=== PATIENT | male | born 1945 | race Caucasian/White ===

== ENCOUNTER 2019-08-27 08:06 | Outpatient (CLI) | payer MEDICARE, SELFPAY ==
[2019-08-27 08:36] LABS: Add Urine Microscopic? YES; Appearance Urine Clear (Clear); Bilirubin Urine Negative (Negative); Blood Urine Negative (Negative); Color Urine Yellow (Yellow); Glucose Urine UA Negative (Negative); Ketones Urine Negative (Negative); Leukocyte Esterase Ur Negative LEU/UL (NEGATIVE); Mucus Urine Rare /lpf; Nitrate Urine Negative (Negative); Protein Urine 1+ mg/dL (Negative); RBC Urine 0-2 /hpf (0-2); Specific Grav Ur 1.021 (1.001-1.035); Squamous Epithelial Cell Urine Rare /hpf (Few); Urobilinogen Urine Negative mg/dL (<2.0); WBC Urine 0-3 /hpf (0-3)
[2019-08-27 08:48] LABS: Potassium 4.6 mmol/L (3.4-5.0)
[2019-08-27 08:50] LABS: Hemoglobin A1C 7.2 % (<5.7)
[2019-08-27 08:52] LABS: Alanine Aminotransferase 17 U/L (4-50); Alkaline Phosphatase 57 U/L (38-126); Aspartate Amino Transferase 21 U/L (17-59); Bilirubin,Total 0.5 mg/dL (0.2-1.3); Blood Urea Nitrogen 17 mg/dL (9-20); Calcium 8.9 mg/dL (8.4-10.2); Carbon Dioxide 30 mmol/L (22-30); Chloride 102 mmol/L (98-107); Cholesterol 115 mg/dL (0-200); Estimated Glomerular Filt Rate > 60; Glucose 131 mg/dL (75-110); HDL Direct 40 mg/dL; Sodium 139 mmol/L (137-145); Triglycerides 62 mg/dL (<150)
[2019-08-27 09:00] LABS: LDL Cholesterol Direct 61 mg/dL
[2019-08-27 09:19] LABS: Prostate Specific Antigen 2.4 ng/mL (< OR = 4.0)
== END 2019-08-27 08:07 | disposition home or self-care (01) ==
PROVIDERS: PCP Family Medicine; Visit Provider Family Medicine
DX: I10 Essential (primary) hypertension (principal); E11.9 Type 2 diabetes mellitus without complications; E78.2 Mixed hyperlipidemia; R35.1 Nocturia
CPT/HCPCS: 36415; 80048; 80061; 80076; 81001; 83036; 84153; 84443

== ENCOUNTER 2020-04-21 07:49 | Outpatient (CLI) | payer MEDICARE, SELFPAY ==
[2020-04-21 08:19] LABS: Anion Gap 8 mmol/L (8-16); Blood Urea Nitrogen 17 mg/dL (9-20); Calcium 9.1 mg/dL (8.4-10.2); Carbon Dioxide 30 mmol/L (22-30); Chloride 98 mmol/L (98-107); Estimated Glomerular Filt Rate > 60; Glucose 141 mg/dL (75-110); Potassium 4.2 mmol/L (3.4-5.0); Sodium 136 mmol/L (137-145)
== END 2020-04-21 07:50 | disposition home or self-care (01) ==
PROVIDERS: PCP Family Medicine; Visit Provider Family Medicine
DX: E11.9 Type 2 diabetes mellitus without complications (principal)
CPT/HCPCS: 36415; 80048; 83036

== ENCOUNTER 2020-07-29 09:00 | Outpatient (CLI) | payer MEDICARE, SELFPAY | END 2020-07-29 09:01 | disposition home or self-care (01) | LOC: ANHCOVIDVC 09:00 | PROVIDERS: PCP Family Medicine | DX: Z23 Encounter for immunization (principal) | CPT/HCPCS: 0001A; 91300 ==

== ENCOUNTER 2020-08-19 08:51 | Outpatient (CLI) | payer MEDICARE, SELFPAY | END 2020-08-19 08:52 | disposition home or self-care (01) | LOC: ANHCOVIDVC 08:51 | PROVIDERS: PCP Family Medicine | DX: Z23 Encounter for immunization (principal) | CPT/HCPCS: 0002A; 91300 ==

== ENCOUNTER 2020-08-31 08:16 | Outpatient (CLI) | payer MEDICARE, SELFPAY ==
[2020-08-31 09:04] LABS: Add Urine Microscopic? YES; Appearance Urine Clear (Clear); Bilirubin Urine Negative (Negative); Blood Urine Negative (Negative); Color Urine Yellow (Yellow); Glucose Urine UA 1+ mg/dL (Negative); Ketones Urine Negative (Negative); Leukocyte Esterase Ur 1+ LEU/UL (NEGATIVE); Mucus Urine Rare /lpf; Nitrate Urine Negative (Negative); Protein Urine Negative (Negative); RBC Urine 0-2 /hpf (0-2); Specific Grav Ur 1.023 (1.001-1.035); Squamous Epithelial Cell Urine Rare /hpf (Few); Urobilinogen Urine Negative mg/dL (<2.0)
[2020-08-31 09:05] LABS: Basophils Absolute Auto 0.1 K/mm3 (0.0-0.1); Basophils Percent Auto 0.6 % (0.2-1.2); Eosinophils Absolute Auto 0.2 K/mm3 (0-0.3); Eosinophils Percent Auto 1.3 % (0-4.4); Hematocrit 40.9 % (42.0-52.0); Hemoglobin 13.3 g/dL (14.0-18.0); Immature Granulocyte Absolute 0.11 K/mm3 (0.00-0.031); Lymphocytes Absolute Auto 2.82 K/mm3 (0.9-3.2); Lymphocytes Percent Auto 25.2 % (18.3-44.2); Mean Corpuscular HGB Conc 32.5 g/dl (32-36); Mean Corpuscular Hemoglobin 29.8 pg (26-34); Mean Corpuscular Volume 91.5 fl (80-100); Mean Platelet Volume 10.7 fl (7.4-10.4); Monocytes Absolute Auto 1.1 K/mm3 (0.1-0.6); Monocytes Percent Auto 10.2 % (2.6-8.5); Neutrophils Absolute Auto 6.9 K/mm3 (1.3-6.7); Neutrophils Percent Auto 61.7 % (45.5-73.1); Platelet Count Result 264 k/mm3 (150-375); Red Blood Count 4.47 M/mm3 (4.6-6.20); Red Cell Distribution Width 12.5 % (11.5-14.5); White Blood Count 11.2 K/mm3 (4.5-10.0)
[2020-08-31 09:12] LABS: Alanine Aminotransferase 15 U/L (4-50); Alkaline Phosphatase 59 U/L (38-126); Anion Gap 6 mmol/L (8-16); Aspartate Amino Transferase 20 U/L (17-59); Bilirubin,Total 0.5 mg/dL (0.2-1.3); Blood Urea Nitrogen 17 mg/dL (9-20); Calcium 9.2 mg/dL (8.4-10.2); Carbon Dioxide 32 mmol/L (22-30); Chloride 99 mmol/L (98-107); Cholesterol 118 mg/dL (0-200); Estimated Glomerular Filt Rate > 60; Glucose 154 mg/dL (75-110); HDL Direct 46 mg/dL; Potassium 4.5 mmol/L (3.4-5.0); Sodium 137 mmol/L (137-145); Triglycerides 62 mg/dL (<150)
[2020-08-31 09:23] LABS: LDL Cholesterol Direct 68 mg/dL
[2020-08-31 09:42] LABS: Prostate Specific Antigen 2.5 ng/mL (< OR = 4.0)
[2020-08-31 10:37] LABS: Creatinine Urine 145.5 mg/dL
[2020-08-31 10:40] LABS: MALB Creatinine Ratio 4.3 mg/g (0-30); Microalbumin Urine Random 6.3 mg/L (0-16.7)
[2020-08-31 10:48] LABS: Hemoglobin A1C 7.6 % (<5.7)
== END 2020-08-31 08:17 | disposition home or self-care (01) ==
PROVIDERS: PCP Family Medicine; Visit Provider Family Medicine
DX: R35.1 Nocturia (principal); E11.9 Type 2 diabetes mellitus without complications; E78.2 Mixed hyperlipidemia; I10 Essential (primary) hypertension; J44.9 Chronic obstructive pulmonary disease, unspecified
CPT/HCPCS: 36415; 80048; 80061; 80076; 81001; 82043; 83036; 84153; 84443; 85025

== ENCOUNTER 2021-01-21 08:14 | Outpatient (CLI) | payer MEDICARE, SELFPAY ==
[2021-01-21 09:01] LABS: Basophils Absolute Auto 0.1 K/mm3 (0.0-0.1); Basophils Percent Auto 0.8 % (0.2-1.2); Eosinophils Absolute Auto 0.1 K/mm3 (0-0.3); Eosinophils Percent Auto 1.2 % (0-4.4); Hematocrit 42.5 % (42.0-52.0); Hemoglobin 14.1 g/dL (14.0-18.0); Immature Granulocyte Absolute 0.04 K/mm3 (0.00-0.031); Immature Granulocyte Percent A 0.3 % (0-0.5); Lymphocytes Absolute Auto 2.71 K/mm3 (0.9-3.2); Lymphocytes Percent Auto 22.8 % (18.3-44.2); Mean Corpuscular HGB Conc 33.2 g/dl (32-36); Mean Corpuscular Hemoglobin 30.7 pg (26-34); Mean Corpuscular Volume 92.4 fl (80-100); Monocytes Absolute Auto 1.2 K/mm3 (0.1-0.6); Monocytes Percent Auto 10.1 % (2.6-8.5); Neutrophils Absolute Auto 7.7 K/mm3 (1.3-6.7); Neutrophils Percent Auto 64.8 % (45.5-73.1); Platelet Count Result 282 k/mm3 (150-375); Red Cell Distribution Width 12.6 % (11.5-14.5); White Blood Count 11.9 K/mm3 (4.5-10.0)
[2021-01-21 09:32] LABS: Hemoglobin A1C 7.1 % (<5.7)
[2021-01-21 10:09] LABS: Iron 135 ug/dL (49-181)
[2021-01-21 10:21] LABS: Folic Acid 18.1 ng/mL (2.76->20)
== END 2021-01-21 08:15 | disposition home or self-care (01) ==
LOC: ANHLAB 08:19
PROVIDERS: PCP Family Medicine; Visit Provider Family Medicine
DX: E11.65 Type 2 diabetes mellitus with hyperglycemia (principal); D64.9 Anemia, unspecified
CPT/HCPCS: 36415; 82607; 82746; 83036; 83540; 85025

== ENCOUNTER 2021-09-01 08:23 | Outpatient (CLI) | payer MEDICARE, SELFPAY ==
[2021-09-01 08:51] LABS: Hematocrit 39.5 % (42.0-52.0); Hemoglobin 13.2 g/dL (14.0-18.0); Mean Corpuscular HGB Conc 33.4 g/dl (32-36); Mean Corpuscular Hemoglobin 31.1 pg (26-34); Mean Corpuscular Volume 93.2 fl (80-100); Platelet Count Result 273 k/mm3 (150-375); Red Blood Count 4.24 M/mm3 (4.6-6.20); Red Cell Distribution Width 12.9 % (11.5-14.5)
[2021-09-01 08:52] LABS: Appearance Urine Clear (Clear); Bilirubin Urine Negative (Negative); Blood Urine Negative (Negative); Color Urine Yellow (Yellow); Glucose Urine UA Trace mg/dL (Negative); Ketones Urine Negative (Negative); Leukocyte Esterase Ur Trace LEU/UL (NEGATIVE); Nitrate Urine Negative (Negative); Protein Urine Negative (Negative); Specific Grav Ur 1.025 (1.001-1.035)
[2021-09-01 08:59] LABS: Bacteria Urine Trace /hpf; Mucus Urine Rare /lpf; RBC Urine 0-2 /hpf (0-2); WBC Urine 0-3 /hpf (0-3)
[2021-09-01 09:01] LABS: Add Urine Microscopic? YES
[2021-09-01 09:02] LABS: Hemoglobin A1C 7.1 % (<5.7)
[2021-09-01 09:32] LABS: Microalbumin Urine Random 7.5 mg/L (0-16.7)
[2021-09-01 09:34] LABS: Creatinine Urine 128.2 mg/dL; MALB Creatinine Ratio 5.9 mg/g (0-30)
[2021-09-01 10:13] LABS: Alanine Aminotransferase 16 U/L (4-50); Alkaline Phosphatase 63 U/L (38-126); Anion Gap 7 mmol/L (8-16); Aspartate Amino Transferase 23 U/L (17-59); Bilirubin,Total 0.7 mg/dL (0.2-1.3); Blood Urea Nitrogen 16 mg/dL (9-20); Calcium 8.7 mg/dL (8.4-10.2); Carbon Dioxide 28 mmol/L (22-30); Chloride 100 mmol/L (98-107); Cholesterol 125 mg/dL (0-200); Estimated Glomerular Filt Rate > 60; Glucose 164 mg/dL (65-110); HDL Direct 46 mg/dL; Potassium 4.5 mmol/L (3.4-5.0); Sodium 135 mmol/L (137-145); Triglycerides 62 mg/dL (<150)
[2021-09-01 10:24] LABS: LDL Cholesterol Direct 60 mg/dL
[2021-09-01 10:43] LABS: Prostate Specific Antigen 2.4 ng/mL (< OR = 4.0)
[2021-09-01 11:08] LABS: Vitamin B12 > 1000.0 pg/mL (239-931)
== END 2021-09-01 08:24 | disposition home or self-care (01) ==
LOC: ANHLAB 08:27
PROVIDERS: PCP Family Medicine; Visit Provider Family Medicine
DX: E78.2 Mixed hyperlipidemia (principal); D51.9 Vitamin B12 deficiency anemia, unspecified; E11.65 Type 2 diabetes mellitus with hyperglycemia; R35.1 Nocturia
CPT/HCPCS: 36415; 80048; 80061; 80076; 81001; 82043; 82607; 83036; 84153; 84443; 85027

== ENCOUNTER 2022-03-08 08:04 | Outpatient (CLI) | payer MEDICARE, SELFPAY ==
[2022-03-08 08:55] LABS: Alanine Aminotransferase 19 U/L (6-50); Albumin Level 4.2 g/dL (3.5-5.1); Alkaline Phosphatase 57 U/L (38-126); Anion Gap 13 mmol/L (8-16); Aspartate Amino Transferase 23 U/L (17-59); Bilirubin,Total 0.8 mg/dL (0.2-1.3); Blood Urea Nitrogen 14 mg/dL (9-20); Calcium 8.9 mg/dL (8.4-10.2); Carbon Dioxide 25 mmol/L (22-30); Chloride 97 mmol/L (98-107); Cholesterol 116 mg/dL (0-200); Estimated Glomerular Filt Rate > 60; Glucose 150 mg/dL (65-110); HDL Direct 44 mg/dL; Potassium 4.4 mmol/L (3.4-5.0); Sodium 135 mmol/L (137-145); Triglycerides 75 mg/dL (<150)
[2022-03-08 09:06] LABS: Hemoglobin A1C 7.9 % (<5.7); LDL Cholesterol Direct 55 mg/dL
== END 2022-03-08 08:05 | disposition home or self-care (01) ==
PROVIDERS: PCP Family Medicine; Visit Provider Family Medicine
DX: E78.2 Mixed hyperlipidemia (principal); E11.65 Type 2 diabetes mellitus with hyperglycemia
CPT/HCPCS: 36415; 80048; 80061; 80076; 83036

== ENCOUNTER 2022-09-14 07:54 | Outpatient (CLI) | payer MEDICARE, SELFPAY ==
[2022-09-14 08:34] LABS: Basophils Absolute Auto 0.1 K/mm3 (0.0-0.1); Basophils Percent Auto 0.5 % (0.2-1.2); Eosinophils Absolute Auto 0.1 K/mm3 (0-0.3); Eosinophils Percent Auto 0.8 % (0-4.4); Hematocrit 43.8 % (42.0-52.0); Hemoglobin 14.2 g/dL (14.0-18.0); Immature Granulocyte Absolute 0.04 K/mm3 (0.00-0.031); Immature Granulocyte Percent A 0.4 % (0-0.5); Lymphocytes Absolute Auto 2.71 K/mm3 (0.9-3.2); Lymphocytes Percent Auto 25.5 % (18.3-44.2); Mean Corpuscular HGB Conc 32.4 g/dl (32-36); Mean Corpuscular Hemoglobin 30.7 pg (26-34); Mean Corpuscular Volume 94.8 fl (80-100); Mean Platelet Volume 10.3 fl (7.4-10.4); Monocytes Absolute Auto 1.1 K/mm3 (0.1-0.6); Monocytes Percent Auto 10.3 % (2.6-8.5); Neutrophils Absolute Auto 6.7 K/mm3 (1.3-6.7); Neutrophils Percent Auto 62.5 % (45.5-73.1); Platelet Count Result 259 k/mm3 (150-375); Red Blood Count 4.62 M/mm3 (4.6-6.20); Red Cell Distribution Width 13.3 % (11.5-14.5); White Blood Count 10.6 K/mm3 (4.5-10.0)
[2022-09-14 08:38] LABS: Appearance Urine Clear (Clear); Bilirubin Urine Negative (Negative); Blood Urine Negative (Negative); Color Urine Yellow (Yellow); Glucose Urine UA 3+ mg/dL (Negative); Ketones Urine Trace mg/dL (Negative); Leukocyte Esterase Ur Negative LEU/UL (NEGATIVE); Nitrate Urine Negative (Negative); Protein Urine Negative (Negative); Specific Grav Ur 1.032 (1.001-1.035); pH Urine 5.5 (5.0-9.0)
[2022-09-14 08:40] LABS: Alanine Aminotransferase 19 U/L (6-50); Albumin Level 4.1 g/dL (3.5-5.1); Alkaline Phosphatase 53 U/L (38-126); Anion Gap 8 mmol/L (8-16); Aspartate Amino Transferase 21 U/L (17-59); Blood Urea Nitrogen 17 mg/dL (9-20); Carbon Dioxide 28 mmol/L (22-30); Chloride 99 mmol/L (98-107); Cholesterol 109 mg/dL (0-200); Estimated Glomerular Filt Rate > 60; Glucose 141 mg/dL (65-110); HDL Direct 43 mg/dL; Potassium 4.6 mmol/L (3.4-5.0); Sodium 135 mmol/L (137-145); Triglycerides 68 mg/dL (<150)
[2022-09-14 08:41] LABS: Add Urine Microscopic? NO
[2022-09-14 08:51] LABS: LDL Cholesterol Direct 49 mg/dL
[2022-09-14 09:11] LABS: Prostate Specific Antigen 3.2 ng/mL (< OR = 4.0)
[2022-09-14 10:21] LABS: MALB Creatinine Ratio < 9.5 mg/g (0-30); Microalbumin Urine Random < 6.0 mg/L (0-16.7)
== END 2022-09-14 07:55 | disposition home or self-care (01) ==
LOC: ANHLAB 07:55
PROVIDERS: PCP Family Medicine; Visit Provider Family Medicine
DX: R35.1 Nocturia (principal); E11.65 Type 2 diabetes mellitus with hyperglycemia; E78.2 Mixed hyperlipidemia; D51.9 Vitamin B12 deficiency anemia, unspecified
CPT/HCPCS: 36415; 80048; 80061; 80076; 81003; 82043; 82607; 83036; 84153; 84443; 85025

== ENCOUNTER 2023-03-21 07:34 | Outpatient (CLI) | payer MEDICARE, SELFPAY ==
[2023-03-21 08:27] LABS: Hemoglobin A1C 6.2 % (<5.7)
[2023-03-21 08:29] LABS: Alanine Aminotransferase 16 U/L (6-50); Alkaline Phosphatase 56 U/L (38-126); Anion Gap 7 mmol/L (8-16); Aspartate Amino Transferase 20 U/L (17-59); Bilirubin,Total 1.2 mg/dL (0.2-1.3); Blood Urea Nitrogen 16 mg/dL (9-20); Calcium 9.2 mg/dL (8.4-10.2); Carbon Dioxide 27 mmol/L (22-30); Chloride 102 mmol/L (98-107); Cholesterol 128 mg/dL (0-200); Estimated Glomerular Filt Rate > 60; Glucose 116 mg/dL (65-110); HDL Direct 47 mg/dL; Potassium 4.3 mmol/L (3.4-5.0); Sodium 136 mmol/L (137-145); Triglycerides 66 mg/dL (<150)
[2023-03-21 08:39] LABS: LDL Cholesterol Direct 69 mg/dL
== END 2023-03-21 07:35 | disposition home or self-care (01) ==
LOC: ANHLAB 07:37
PROVIDERS: PCP Family Medicine; Visit Provider Family Medicine
DX: D51.9 Vitamin B12 deficiency anemia, unspecified (principal); E11.65 Type 2 diabetes mellitus with hyperglycemia; E78.2 Mixed hyperlipidemia
CPT/HCPCS: 36415; 80048; 80061; 80076; 82607; 83036

== ENCOUNTER 2023-10-09 08:04 | Outpatient (CLI) | payer MEDICARE, SELFPAY ==
[2023-10-09 08:44] LABS: Appearance Urine Clear (Clear); Bilirubin Urine Negative (Negative); Blood Urine Negative (Negative); Color Urine Yellow (Yellow); Glucose Urine UA 3+ mg/dL (Negative); Ketones Urine Negative (Negative); Leukocyte Esterase Ur Negative LEU/UL (Negative); Nitrate Urine Negative (Negative); Protein Urine Negative (Negative); Specific Grav Ur 1.029 (1.001-1.035)
[2023-10-09 08:44] LABS: Basophils Percent Auto 0.4 % (0.2-1.2); Eosinophils Absolute Auto 0.1 K/mm3 (0-0.3); Eosinophils Percent Auto 0.7 % (0-4.4); Hematocrit 47.3 % (42.0-52.0); Hemoglobin 15.4 g/dL (14.0-18.0); Immature Granulocyte Absolute 0.04 K/mm3 (0.00-0.031); Immature Granulocyte Percent A 0.4 % (0-0.5); Lymphocytes Absolute Auto 2.34 K/mm3 (0.9-3.2); Lymphocytes Percent Auto 24.9 % (18.3-44.2); Mean Corpuscular HGB Conc 32.6 g/dl (32-36); Mean Corpuscular Hemoglobin 31.2 pg (26-34); Mean Corpuscular Volume 95.7 fl (80-100); Mean Platelet Volume 10.8 fl (7.4-10.4); Monocytes Percent Auto 10.4 % (2.6-8.5); Neutrophils Absolute Auto 5.9 K/mm3 (1.3-6.7); Neutrophils Percent Auto 63.2 % (45.5-73.1); Platelet Count Result 245 k/mm3 (150-375); Red Blood Count 4.94 M/mm3 (4.6-6.20); Red Cell Distribution Width 13.2 % (11.5-14.5); White Blood Count 9.4 K/mm3 (4.5-10.0)
[2023-10-09 08:54] LABS: Alanine Aminotransferase 15 U/L (6-50); Albumin Level 4.5 g/dL (3.5-5.1); Alkaline Phosphatase 65 U/L (38-126); Anion Gap 8 mmol/L (4-12); Aspartate Amino Transferase 21 U/L (17-59); Blood Urea Nitrogen 25 mg/dL (9-20); Calcium 9.4 mg/dL (8.4-10.2); Carbon Dioxide 27 mmol/L (22-30); Chloride 102 mmol/L (98-107); Cholesterol 135 mg/dL (0-200); Estimated Glomerular Filt Rate > 60; Glucose 126 mg/dL (65-110); HDL Direct 56 mg/dL; Magnesium 2.2 mg/dL (1.6-2.3); Potassium 4.3 mmol/L (3.4-5.0); Sodium 137 mmol/L (137-145); Triglycerides 74 mg/dL (<150)
[2023-10-09 09:00] LABS: Add Urine Microscopic? NO
[2023-10-09 09:04] LABS: LDL Cholesterol Direct 73 mg/dL
[2023-10-09 09:09] LABS: Creatinine Urine 60.1 mg/dL
[2023-10-09 09:10] LABS: Hemoglobin A1C 6.5 % (<5.7)
[2023-10-09 09:17] LABS: MALB Creatinine Ratio < 10.0 mg/g (0-30); Microalbumin Urine Random < 6.0 mg/L (0-16.7)
[2023-10-09 09:24] LABS: Prostate Specific Antigen 3.9 ng/mL (< OR = 4.0)
== END 2023-10-09 08:05 | disposition home or self-care (01) ==
PROVIDERS: PCP Family Medicine; Visit Provider Family Medicine
DX: Z12.5 Encounter for screening for malignant neoplasm of prostate (principal); D51.9 Vitamin B12 deficiency anemia, unspecified; I48.91 Unspecified atrial fibrillation; E78.2 Mixed hyperlipidemia; E11.65 Type 2 diabetes mellitus with hyperglycemia
CPT/HCPCS: 36415; 80048; 80061; 80076; 81003; 82043; 82607; 83036; 83735; 84153; 84443; 85025; G0103

== ENCOUNTER 2024-04-16 08:08 | Outpatient (CLI) | payer MEDICARE, SELFPAY ==
[2024-04-16 08:41] LABS: Anion Gap 5 mmol/L (4-12); Blood Urea Nitrogen 23 mg/dL (9-20); Carbon Dioxide 31 mmol/L (22-30); Chloride 101 mmol/L (98-107); Estimated Glomerular Filt Rate > 60; Glucose 157 mg/dL (65-110); Potassium 4.5 mmol/L (3.4-5.0); Sodium 137 mmol/L (137-145)
[2024-04-16 08:42] LABS: Alanine Aminotransferase 15 U/L (6-50); Albumin Level 4.4 g/dL (3.5-5.1); Alkaline Phosphatase 69 U/L (38-126); Aspartate Amino Transferase 21 U/L (17-59); Bilirubin,Total 1.4 mg/dL (0.2-1.3); Calcium 9.3 mg/dL (8.4-10.2); Cholesterol 138 mg/dL (0-200); HDL Direct 55 mg/dL; Triglycerides 71 mg/dL (<150)
[2024-04-16 08:53] LABS: LDL Cholesterol Direct 62 mg/dL
[2024-04-16 14:33] LABS: Hemoglobin A1C 6.9 % (<5.7)
== END 2024-04-16 08:09 | disposition home or self-care (01) ==
PROVIDERS: PCP Family Medicine; Visit Provider Family Medicine
DX: D51.9 Vitamin B12 deficiency anemia, unspecified (principal); E78.2 Mixed hyperlipidemia; E11.65 Type 2 diabetes mellitus with hyperglycemia
CPT/HCPCS: 36415; 80048; 80061; 80076; 82607; 83036

== ENCOUNTER 2024-04-22 18:27 | Emergency (ER) | payer MEDICARE, SELFPAY ==
[2024-04-22] VITALS (8 sets, daily range): BP systolic 116–147; BP diastolic 76–97; PULSE 88–94; RESP 15–26; TEMP 36.6–37.2; O2SAT 94–97
--- NOTE | ~2024-04-22 | CT_ITS ---
EXAMINATION: CT brain wo con DATE: 04/22/2024 22:18 INDICATION: unilateral tremor and paresthesias . TECHNIQUE: Computed tomography (CT) of the head was performed without intravenous contrast. The mA wa s adjusted according to patient size. Iterative reconstruction technique was employed. The dose-lengt h product was 681.00 mGy-cm. COMPARISON: None. FINDINGS: No acute intracranial hemorrhage or extra-axial fluid collection. No hydrocephalus, mass, or herniation. No acute ischemic infarct. Unremarkable dural venous sinus attenuation. No acute osseous abnormality. The aerated spaces are clear. Mild atrophy and chronic white matter change. Atherosclerotic intracranial calcification. IMPRESSION: No acute intracranial process. Reviewed, dictated and finalized at location K. N PROFESSOR
--- NOTE | ~2024-04-22 | XR_ITS ---
EXAMINATION: XR chest 2V Exam Date/Time: 04/22/2024 19:00 [employer]ANE [employer] SUPERVISOR HISTORY: cp Comparison: 03/28/2016. RESULT: Lines, tubes, and devices: Fractured inferior sternal wire with migration. Lungs and pleura: Senescent/emphysematous change, otherwise clear. Cardiomediastinal silhouette: Stable. Other: No acute osseous or upper abdominal finding. IMPRESSION: No acute cardiopulmonary process. Fractured inferior sternal wire with migration of wire fragments, which can be a source of chest pain . Reviewed, dictated and finalized at location K. LANE PILOT SUPERVISOR IMPRESSION: No acute cardiopulmonary process. Fractured inferior sternal wire with migration of wire fragments, which can be a source of chest pain.
--- NOTE | ~2024-04-22 | CT_ITS ---
EXAMINATION: CT cervical spine wo con DATE: 04/22/2024 22:18 INDICATION: unilateral paresthesias TECHNIQUE: Computed tomography (CT) of the cervical spine was performed without intravenous contrast. Automated exposure control and iterative reconstruction technique were employed. The dose-length pro duct was 521.99 mGy-cm. COMPARISON: None. FINDINGS: Vertebral Body Alignment: Intact. Craniocervical and atlantoaxial alignment: Moderate degenerative change. Alignment intact. Osseous structures/fracture: No evidence of a lytic or blastic process in the visualized spine. No e vidence of acute fracture. Cervical soft tissues: The paraspinal soft tissues planes are maintained. Degenerative changes: Multilevel moderate degenerative disc disease and facet arthropathy. Moderate r ight neural foraminal narrowing at C3-4. Severe neural foraminal narrowing on the left at C5-6. No se ruddy central canal narrowing. IMPRESSION: No acute fracture or traumatic malalignment in the cervical spine. Reviewed, dictated and finalized at location K. [facility]
--- NOTE | 2024-04-22 18:50 | ED_ITS ---
HPI - General Adult General Chief complaint: Unspecified <Faustina Feldman PA-C - Last Filed: 04/23/24 14:43> Stated complaint: shaky, diarrhea <Faustina Feldman PA-C - Last Filed: 04/23/24 14:43> Time Seen by Provider: 04/22/24 18:50 <Faustina Feldman PA-C - Last Filed: 04/23/24 14:43> Focused HPI: This is a 78 year old male that presents to the ER for increased shakiness. This has been ongoing for a while. Reports today he has had diarrhea, chest pain, headache as well. GENERAL: Elderly, well-nourished, and in no acute distress. HEAD: Normocephalic, atraumatic. CHEST: Clear to auscultation. ?No respiratory distress. HEART: Regular rate and rhythm.? NEURO: ?Alert and oriented x3. Patient screened in triage and initial orders placed.? ?Additional care and disposition to be based upon?diagnostic testing and treatment. <Faustina Feldman PA-C - Last Filed: 04/23/24 14:43> Source: patient and family ( daughter, [id number]) <Jamaica Cheng MD - Last Filed: 04/24/24 10:05> History of Present Illness HPI narrative: agree with the above with the following additions/corrections: Patient presents report of increased shakiness/ twitching in his right arm. He has been having this occur on his face and arm prior to this. He was supposed to have an appointment to see his primary care physician Dr. Vinson today but he canceled that because he had some diarrhea. He has also had some slight chest pain but he developed this after coughing which has been occasionally productive of some phlegm. He has been taking Mucinex and Zyrtec daily. Headache but this is better now. Denies any fevers or chills. No history of any neurological diagnoses. He states that he is having some paresthesias in his right Forearm from the elbow \ to the hand, that it feels like it is asleep in this distribution. No trauma or injury. History of bilateral rotator cuff repairs. [id number]. Only scant alcohol consumption (eats gin-soaked raisins occasionally). no recent surgeries, still has his parathyroids/ thyroid. He has a history of diabetes for which he is on Trulicity, glipizide/glyburide, metformin and Jardiance. Not on insulin. He also has hypertension and hyperlipidemia as well as coronary artery disease status post triple bypass. Nonsmoker. No family history of a myocardial infarction before the age of 65 <Jamaica Cheng MD - Last Filed: 04/24/24 10:05> Related Data Home medications: Home Medications ?Medication ?Instructions ?Recorded ?Confirmed ?Last Taken ?Type furosemide 40 mg tablet 40 mg PO QAM 06/16/19 03/28/23 Unknown History guaifenesin 600 mg tablet, 600 mg PO .QD 06/16/19 03/28/23 Unknown History extended release 12 hr (Mucinex) omega-3 fatty acids 1,000 mg 1,000 mg PO DAILY 06/16/19 03/28/23 Unknown History capsule (Fish Oil Concentrate) rivaroxaban 20 mg tablet (Xarelto) 20 mg PO DAILY 06/16/19 03/28/23 Unknown History simvastatin 40 mg tablet 40 mg PO DAILY 06/16/19 03/28/23 Unknown History loratadine 10 mg tablet (Claritin) 10 mg PO DAILY PRN allergy symptoms 08/25/19 03/28/23 Unknown History tamsulosin 0.4 mg capsule (Flomax) 0.4 mg PO DAILY 04/27/20 03/28/23 Unknown History cholecalciferol (vitamin D3) 50 2,000 unit PO DAILY 09/07/20 03/28/23 Unknown History mcg (2,000 unit) capsule enalapril maleate 5 mg tablet 5 mg PO DAILY 11/23/20 03/28/23 Unknown History cyanocobalamin (vitamin B-12) 1,000 mcg PO DAILY 02/08/21 03/28/23 Unknown History 1,000 mcg tablet aspirin 81 mg tablet,delayed 81 mg PO DAILY 09/19/22 03/28/23 Unknown History release (Adult Aspirin Regimen) metoprolol succinate 25 mg 25 mg PO . once daily 03/28/23 03/28/23 Unknown History tablet,extended release 24 hr <Faustina Feldman PA-C - Last Filed: 04/23/24 14:43> Allergies/adverse reactions: Allergies Allergy/AdvReac Type Severity Reaction Status Date / Time unknown antibiotics Allergy Unknown DIZZINESS Uncoded 09/10/20 13:35 Contrast Media AdvReac Intermediate HEADACHE Uncoded 09/10/20 13:35 <Faustina Feldman PA-C - Last Filed: 04/23/24 14:43> Review of Systems 2 Review of Systems: All systems reviewed & are unremarkable except as noted in HPI and below <Faustina Feldman PA-C - Last Filed: 04/23/24 14:43> [facility] Past Medical History Medical History: Medical History (Updated 04/24/24 @ 09:57 by Jamaica Cheng MD) Right hand dominant Tremor (~2023) right upper extremity and mouth BMI 32.0-32.9,adult Encounter for prostate cancer screening PSA 2.4 on 09/01/2021. PSA 3.2 on 09/14/2022. CHF (congestive heart failure) diastolic dysfunction with preserved ejection fraction at 59% December,. Callus of foot diabetic shoes Bunion of great toe of right foot diabetic shoes BMI 36.0-36.9,adult Obesity (BMI 30-39.9) BMI 37.0-37.9, adult Vitamin B12 deficiency anemia Greater than 1000 on 09/01/2021. vitamin B12 low at 260 with hemoglobin 14.2 on 09/14/2022. Goal greater than 400. level low at 273 with goal greater than 400 on 03/21/2023. Level low at 248 with hemoglobin 15.4 on 10/09/2023. Diabetic eye exam no diabetic retinopathy on 09/23/2020. no retinopathy 09/28/2021. No diabetic retinopathy 09/28/2022. No retinopathy 10/04/2023. Genitourinary bleeding BMI 38.0-38.9,adult Controlled diabetes mellitus with hyperglycemia, without long-term current use of insulin Glucose 164 with hemoglobin A1c 7.1 on 09/01/2021. Microalbumin ratio 5.9 09/01/2021. Fasting glucose 150 with hemoglobin A1c 7.9 on 03/08/2022. Fasting glucose 141 with hemoglobin A1c 7.0 and urine microalbumin ratio of less than 9.5 on 09/14/2022. Fasting glucose 116 with hemoglobin A1c 6.2 on 03/21/2023. Glucose 126 with hemoglobin A1c 6.5 with urine microalbumin ratio less than 10 on 10/09/2023. Anemia Hemoglobin 13.2 with hematocrit 39.5 on 09/01/2021. Hemoglobin 14.2 on 09/14/2022. BPH without obstruction/lower urinary tract symptoms PSA normal at 2.4 on 09/01/2021. Acute non-recurrent maxillary sinusitis COPD (chronic obstructive pulmonary disease) With nocturnal hypoxemia treated with oxygen at 2 liters/minute q.h.s. Chronic bilateral low back pain Osteoarthritis involving multiple joints on both sides of body Polyp of colon Essential (primary) hypertension Seasonal allergic rhinitis Atrial fibrillation Atherosclerotic heart disease of [place] coronary artery without angina pectoris Coronary artery bypass of 3 or 4 vessels 03/14/2017 Nocturia PSA 2.4 on 09/01/2021. Mixed hyperlipidemia Cholesterol 125, triglycerides 62, HDL 46, LDL 60 on 09/01/2021. Total cholesterol 116, triglycerides 75, HDL 44, LDL 55 on 03/08/2022. Total cholesterol 109, triglycerides 68, HDL 43, LDL 49 on 09/14/2022. Cholesterol 128, triglycerides 66, HDL 47, LDL 69 On 03/21/2023. Cholesterol 135, triglycerides 74, HDL 56, LDL 73 on 10/09/2023. Diabetes <Faustina Feldman PA-C - Last Filed: 04/23/24 14:43> Surgical History Surgical History: Surgical History (Updated 04/24/24 @ 09:54 by Jamaica Cheng MD) H/O heart surgery triple bypass H/O foot surgery H/O shoulder surgery Rotator cuff, bilaterally, 2017 <Faustina Feldman PA-C - Last Filed: 04/23/24 14:43> Social History Social History: Social History (Updated 04/24/24 @ 09:55 by Jamaica Cheng MD) Smoking status: Former smoker Alcohol intake: never Alcohol use details: rare/scant (eats gin-soaked raisins) Substance use: never Substance use type: does not use Current Housing: Decline to Answer Concerned About Future Housing: Decline to Answer Difficulty Paying Gas/Electric Bills: Decline to Answer Difficulty Paying for Meds: Decline to Answer Currently Unemployed: Decline to Answer Difficulty w/ Childcare or Family Care: Decline to Answer <Faustina Feldman PA-C - Last Filed: 04/23/24 14:43> Exam 2 Narrative: GENERAL: Well-appearing, well-nourished, and in no acute distress. HEAD: Normocephalic, atraumatic. EYES: Non injected, non icteric ENT: Nares clear, no rhinorrhea or epistaxis. NECK: Supple. CHEST: Speaking in full sentences. No respiratory distress. HEART: Regular rate and rhythm. . ABDOMEN: Protuberant but Soft, nondistended. EXTREMITIES: Normal range of motion. No lower extremity edema. 5/5 strength with bilateral elbow flexion extension against resistance. SKIN: Warm, dry, no rash. NEURO: No focal deficits. Alert and oriented x3. spontaneous twitching right side of face as well as a right arm tremor at rest. no ataxia with [id number] bilaterally. Very mild facial asymmetry. Sensation intact and symmetric to touch in distribution of face x3. Facial movements intact x3 bilaterally. Sensation intact to touch in the upper and lower extremities bilaterally. Tongue protrudes midline without deviation though is slightly tremulous. PSYCH: Normal mood and affect. <Jamaica Cheng MD - Last Filed: 04/24/24 10:05> Course Vital Signs Vital signs: Vital Signs Temperature 98.9 F 04/22/24 19:07 Pulse Rate 89 04/22/24 19:07 Respiratory Rate 15 04/22/24 19:07 Blood Pressure 116/97 H 04/22/24 19:07 Pulse Oximetry 94 04/22/24 19:07 Oxygen Delivery Room Air 04/22/24 19:07 Temperature 98.1 F 04/22/24 22:46 Pulse Rate 90 04/23/24 00:00 Respiratory Rate 21 H 04/23/24 00:00 Blood Pressure 122/83 04/23/24 00:00 Pulse Oximetry 94 04/23/24 00:00 Oxygen Delivery Room Air 04/22/24 19:07 <Faustina Feldman PA-C - Last Filed: 04/23/24 14:43> Vital Signs Temperature 98.9 F 04/22/24 19:07 Pulse Rate 89 04/22/24 19:07 Respiratory Rate 15 04/22/24 19:07 Blood Pressure 116/97 H 04/22/24 19:07 Pulse Oximetry 94 04/22/24 19:07 Oxygen Delivery Room Air 04/22/24 19:07 Temperature 98.1 F 04/22/24 22:46 Pulse Rate 90 04/23/24 00:00 Respiratory Rate 21 H 04/23/24 00:00 Blood Pressure 122/83 04/23/24 00:00 Pulse Oximetry 94 04/23/24 00:00 Oxygen Delivery Room Air 04/22/24 19:07 <Jamaica Cheng MD - Last Filed: 04/24/24 10:05> Medical Decision Making MDM Narrative Medical decision making narrative: [id number] male presents with complaint of right arm twitching and shaking as Well as his right face. he notes that some of this is chronic however the right arm appear to be worsening recently. He was supposed to see his primary care physician today but canceled this appointment due to diarrhea. In the emergency department he is afebrile with vital signs notable for an elevated diastolic blood pressure though with normalization on repeat. He is also borderline hypoxic initially though normal on repeat. He is not initially tachypneic though is on repeat. HEART SCORE History 2 highly suspicious 1 moderately suspicious 0 slightly suspicious History score [address] depression/elevation not due to LBBB, LVH, or digoxin [address] depression but LBBB, LVH, nonspecific repolarization changes 0 normal ECG score 0 Age 2 >/= 65 1 45-64 0 <45 Age score 2 Risk factors (HTN, hypercholesterolemia, DM, obesity with BMI >30, current smoker or cessation </=3mo), positive fam hx with parent or sibling with CVD before age 65, atherosclerotic disease (prior DE, PCI/CABG, CVA/TIA, or peripheral arterial disease) 2 >/= 3 risk factors or history of atherosclerotic dz 1 - 1-2 risk factors 0 no known risk factors Risk factor score 2 (HTN, HLD, CAD, DM, obese) Initial Troponin 2 >3 times normal limit 1 1-3 times normal limit 0 less than or equal to normal limit Troponin score 0 Total HEART Score 4. However, patient states his chest pain has been going on for several days ever he has been coughing. we also discussed the fact that a sternotomy wire appears to be fractured on imaging. Family did ask if this could be Parkinson's and I did discuss that this was a strong consideration and recommended following up with primary care physician. stable for discharge. <Jamaica Cheng MD - Last Filed: 04/24/24 10:05> Differential Diagnosis Differential Diagnosis: electrolyte abnormalities including hypocalcemia hypomagnesemia, hypokalemia, Parkinson's disease, essential tremor, multiple sclerosis, considered alcohol abuse, vitamin deficiency; acute viral syndrome; neuropathy <Jamaica Cheng MD - Last Filed: 04/24/24 10:05> Vital Signs Vital Signs: Vital Signs Temperature 98.9 F 04/22/24 19:07 Pulse Rate 89 04/22/24 19:07 Respiratory Rate 15 04/22/24 19:07 Blood Pressure 116/97 H 04/22/24 19:07 Pulse Oximetry 94 04/22/24 19:07 Oxygen Delivery Room Air 04/22/24 19:07 Temperature 98.1 F 04/22/24 22:46 Pulse Rate 90 04/23/24 00:00 Respiratory Rate 21 H 04/23/24 00:00 Blood Pressure 122/83 04/23/24 00:00 Pulse Oximetry 94 04/23/24 00:00 Oxygen Delivery Room Air 04/22/24 19:07 <Faustina Feldman PA-C - Last Filed: 04/23/24 14:43> Vital Signs Temperature 98.9 F 04/22/24 19:07 Pulse Rate 89 04/22/24 19:07 Respiratory Rate 15 04/22/24 19:07 Blood Pressure 116/97 H 04/22/24 19:07 Pulse Oximetry 94 04/22/24 19:07 Oxygen Delivery Room Air 04/22/24 19:07 Temperature 98.1 F 04/22/24 22:46 Pulse Rate 90 04/23/24 00:00 Respiratory Rate 21 H 04/23/24 00:00 Blood Pressure 122/83 04/23/24 00:00 Pulse Oximetry 94 04/23/24 00:00 Oxygen Delivery Room Air 04/22/24 19:07 <Jamaica Cheng MD - Last Filed: 04/24/24 10:05> Lab Data Lab results reviewed: Yes I reviewed the patient's lab results. <Jamaica Cheng MD - Last Filed: 04/24/24 10:05> Lab results narrative: Leukocytosis, mild hyperglycemia, glucosuria <Jamaica Cheng MD - Last Filed: 04/24/24 10:05> Result diagrams: 04/22/24 21:27 04/22/24 21:27 <Faustina Feldman PA-C - Last Filed: 04/23/24 14:43> Labs: Lab Results 04/22/24 04/22/24 04/22/24 Range/Units 21:27 22:43 22:47 WBC 11.3 H (4.5-10.0) K/mm3 RBC 5.11 (4.6-6.20) M/mm3 Hgb 15.9 (14.0-18.0) g/dL Hct 47.6 (42.0-52.0) % MCV 93.2 (80-100) fl MCH 31.1 (26-34) pg MCHC 33.4 (32-36) g/dl RDW 13.2 (11.5-14.5) % Plt Count 259 (150-375) k/mm3 MPV 10.8 H (7.4-10.4) fl Immature Gran % (Auto) 0.4 (0-0.5) % Neut % (Auto) 83.7 H (45.5-73.1) % Lymph % (Auto) 9.0 L (18.3-44.2) % Gove % (Auto) 6.3 (2.6-8.5) % Eos % (Auto) 0.3 (0-4.4) % Baso % (Auto) 0.3 (0.2-1.2) % Lymph # (Auto) 1.02 (0.9-3.2) K/mm3 Gove # (Auto) 0.7 H (0.1-0.6) K/mm3 Eos # (Auto) 0.0 (0-0.3) K/mm3 Baso # (Auto) 0.0 (0.0-0.1) K/mm3 Abs Immat Gran (auto) 0.04 H (0.00-0.031) K/mm3 Absolute Neuts (auto) 9.5 H (1.3-6.7) K/mm3 Absolute Nucleated RBC 0.000 (0.0-0.012) K/mm3 Nucleated RBC % 0.0 (0.0-0.2) % PT 30.3 H (11.1-14.7) Seconds INR 2.9 APTT 41.1 H (22.3-36.8) Seconds Sodium 134 L (137-145) mmol/L Potassium 4.3 (3.4-5.0) mmol/L Chloride 102 (98-107) mmol/L Carbon Dioxide 25 (22-30) mmol/L Anion Gap 7 (4-12) mmol/L BUN 25 H (9-20) mg/dL Creatinine 0.90 (0.7-1.3) mg/dL Estim Creat Clear Calc 61 ml/min Estimated GFR > 60 (59 - ) Glucose 138 H (65-110) mg/dL Calcium 9.4 (8.4-10.2) mg/dL Magnesium 2.0 (1.6-2.3) mg/dL Total Bilirubin 1.4 H (0.2-1.3) mg/dL AST 28 (17-59) U/L ALT 15 (6-50) U/L Alkaline Phosphatase 57 (38-126) U/L Troponin I < 0.012 (0.000-0.034) ng/mL Total Protein 7.0 (6.3-8.2) g/dL Albumin 4.1 (3.5-5.1) g/dL Lipase 78 (23-300) U/L Urine Color Yellow (Yellow) Urine Appearance Clear (Clear) Urine pH 5.0 (5.0-9.0) Ur Specific [place] 1.038 H (1.001-1.035) Urine Protein Negative (Negative) mg/dL Urine Glucose (UA) 3+ H (Negative) mg/dL Urine Ketones 1+ H (Negative) mg/dL Ur Blood (Man) Negative (Negative) Urine Nitrate Negative (Negative) Urine Bilirubin Negative (Negative) Urine Urobilinogen 1.0 (<2.0) mg/dL Leukocyte Esterase Rfl Negative (Negative) BRI/UL Influenza A (RT-PCR) Negative (Negative) Influenza B (RT-PCR) Negative (Negative) RSV (RT-PCR) Negative (Negative) SARS-CoV-2 RNA (RT-PCR) Negative (Negative) <Faustina Feldman PA-C - Last Filed: 04/23/24 14:43> Lab Results 12/03/0604/22/24 04/22/24 Range/Units 21:27 22:43 22:47 WBC 11.3 H (4.5-10.0) K/mm3 RBC 5.11 (4.6-6.20) M/mm3 Hgb 15.9 (14.0-18.0) g/dL Hct 47.6 (42.0-52.0) % MCV 93.2 (80-100) fl MCH 31.1 (26-34) pg MCHC 33.4 (32-36) g/dl RDW 13.2 (11.5-14.5) % Plt Count 259 (150-375) k/mm3 MPV 10.8 H (7.4-10.4) fl Immature Gran % (Auto) 0.4 (0-0.5) % Neut % (Auto) 83.7 H (45.5-73.1) % Lymph % (Auto) 9.0 L (18.3-44.2) % Gove % (Auto) 6.3 (2.6-8.5) % Eos % (Auto) 0.3 (0-4.4) % Baso % (Auto) 0.3 (0.2-1.2) % Lymph # (Auto) 1.02 (0.9-3.2) K/mm3 Gove # (Auto) 0.7 H (0.1-0.6) K/mm3 Eos # (Auto) 0.0 (0-0.3) K/mm3 Baso # (Auto) 0.0 (0.0-0.1) K/mm3 Abs Immat Gran (auto) 0.04 H (0.00-0.031) K/mm3 Absolute Neuts (auto) 9.5 H (1.3-6.7) K/mm3 Absolute Nucleated RBC 0.000 (0.0-0.012) K/mm3 Nucleated RBC % 0.0 (0.0-0.2) % PT 30.3 H (11.1-14.7) Seconds INR 2.9 APTT 41.1 H (22.3-36.8) Seconds Sodium 134 L (137-145) mmol/L Potassium 4.3 (3.4-5.0) mmol/L Chloride 102 (98-107) mmol/L Carbon Dioxide 25 (22-30) mmol/L Anion Gap 7 (4-12) mmol/L BUN 25 H (9-20) mg/dL Creatinine 0.90 (0.7-1.3) mg/dL Estim Creat Clear Calc 61 ml/min Estimated GFR > 60 (59 - ) Glucose 138 H (65-110) mg/dL Calcium 9.4 (8.4-10.2) mg/dL Magnesium 2.0 (1.6-2.3) mg/dL Total Bilirubin 1.4 H (0.2-1.3) mg/dL AST 28 (17-59) U/L ALT 15 (6-50) U/L Alkaline Phosphatase 57 (38-126) U/L Troponin I < 0.012 (0.000-0.034) ng/mL Total Protein 7.0 (6.3-8.2) g/dL Albumin 4.1 (3.5-5.1) g/dL Lipase 78 (23-300) U/L Urine Color Yellow (Yellow) Urine Appearance Clear (Clear) Urine pH 5.0 (5.0-9.0) Ur Specific [place] 1.038 H (1.001-1.035) Urine Protein Negative (Negative) mg/dL Urine Glucose (UA) 3+ H (Negative) mg/dL Urine Ketones 1+ H (Negative) mg/dL Ur Blood (Man) Negative (Negative) Urine Nitrate Negative (Negative) Urine Bilirubin Negative (Negative) Urine Urobilinogen 1.0 (<2.0) mg/dL Leukocyte Esterase Rfl Negative (Negative) BRI/UL Influenza A (RT-PCR) Negative (Negative) Influenza B (RT-PCR) Negative (Negative) RSV (RT-PCR) Negative (Negative) SARS-CoV-2 RNA (RT-PCR) Negative (Negative) <Jamaica Cheng MD - Last Filed: 04/24/24 10:05> Imaging Data Radiologist's impression: ITS Impressions Chest X-Ray 04/22/24 19:41 IMPRESSION: No acute cardiopulmonary process. Fractured inferior sternal wire with migration of wire fragments, which can be a source of chest pain. Head CT 04/22/24 22:22 IMPRESSION: No acute intracranial process. Cervical Spine CT 04/22/24 22:31 IMPRESSION: No acute fracture or traumatic malalignment in the cervical spine. <Faustina Feldman PA-C - Last Filed: 04/23/24 14:43> ECG Data EKG #1: Attestation: I personally reviewed and interpreted this ECG as follows: < Jamaica Cheng MD - Last Filed: 04/24/24 10:05> ECG completion date: 04/22/24 <Jamaica Cheng MD - Last Filed: 04/24/24 10:05> ECG completion time: 21:37 <Jamaica Cheng MD - Last Filed: 04/24/24 10:05> Prior ECG tracings: available for review ( 03/29/2016 was notable for ventricular bigeminy. ) <Jamaica Cheng MD - Last Filed: 04/24/24 10:05> Interpretation: Normal sinus rhythm at a rate of 80 beats per minute with frequent PVCs. baseline quality is poor due to significant artifact limiting full interpretation. PA interval 187. QRS 133. QT/ QTC 407/443. RBBB given QRS greater [id number]; RSR' M-shaped pattern in V1-V3; wide, slurred S wave in lateral leads (I, aVL, V5-6). <Jamaica Cheng MD - Last Filed: 04/24/24 10:05> Critical Care Time Critical Care Time Critical Care Time: No <Faustina Feldman PA-C - Last Filed: 04/23/24 14:43> Discharge Plan Discharge Clinical Impression: Tremor, Right bundle branch block (RBBB) determined by electrocardiography, Fractured sternal wires, Leukocytosis, Glucosuria, Facial twitching <Faustina Feldman PA-C - Last Filed: 04/23/24 14:43> Patient Disposition: Home, Self-Care <DANIAL Bernabe Last Filed: 04/23/24 14:43> Condition: Stable <Faustina Feldman PA-C - Last Filed: 04/23/24 14:43> Instructions: Antibiotic Form, Leukocytosis (ED), Muscle Spasm (ED), Tremors (ED) <Faustina Feldman PA-C - Last Filed: 04/23/24 14:43> Additional Instructions: As we discussed, the reason for your symptoms is unclear. your workup in the emergency department has not identified a clear etiology. Please keep your follow-up apartment with Dr. Mancini. return to the emergency department with any new or worsening symptoms. Continue to take her medications as prescribed. <Faustina Feldman PA-C - Last Filed: 04/23/24 14:43> Patient Language: Arabic <Faustina Feldman PA-C - Last Filed: 04/23/24 14:43> Prescriptions: No Action cyanocobalamin (vitamin B-12) 1,000 mcg tablet 1,000 mcg PO DAILY aspirin [Adult Aspirin Regimen] 81 mg tablet,delayed release (DR/EC) 81 mg PO DAILY Patient Comments: recommended by collection coordinator loratadine [Claritin] 10 mg tablet 10 mg PO DAILY PRN (Reason: allergy symptoms) tamsulosin [Flomax] 0.4 mg capsule 0.4 mg PO DAILY cholecalciferol (vitamin D3) 50 mcg (2,000 unit) capsule 2,000 unit PO DAILY (DME) blood-glucose meter [OneTouch Ultra2 Meter] Kit See Rx Instructions .Route Qty: 1 0RF Rx Instructions: use daily for diabetes (DME) OneTouch Ultra Test Strip See Rx Instructions .Route Qty: 100 3RF Rx Instructions: daily for diabetes metoprolol succinate 25 mg tablet extended release 24 hr 25 mg PO . once daily furosemide 40 mg tablet 40 mg PO QAM Xarelto 20 mg tablet 20 mg PO DAILY Rx Instructions: must administer with evening meal guaifenesin [Mucinex] 600 mg tablet extended release 12hr 600 mg PO .QD omega-3 fatty acids [Fish Oil Concentrate] 1,000 mg capsule 1,000 mg PO DAILY simvastatin 40 mg tablet 40 mg PO DAILY enalapril maleate 5 mg tablet 5 mg PO DAILY fluticasone propionate 50 mcg/actuation spray,suspension 1 spray NASAL BID Qty: 15.8 3RF Rx Instructions: administer into each nostril metformin 500 mg tablet extended release 24 hr 2,000 mg PO DAILY Qty: 360 3RF Trulicity 1.5 mg/0.5 mL pen injector 1.5 mg subcut WEEKLY Qty: 2 11RF Jardiance 25 mg tablet 25 mg PO DAILY Qty: 30 11RF <Faustian Feldman PA-C - Last Filed: 04/23/24 14:43> Follow-up/Referrals: Michel Funk MD [Primary Care Provider] - <Faustina Feldman PA-C - Last Filed: 04/23/24 14:43> Stand Alone Forms: Work/School Release IP <Faustina Feldman PA-C - Last Filed: 04/23/24 14:43> Time of Disposition: 00:43 <Faustina Feldman PA-C - Last Filed: 04/23/24 14:43> 00:43 <Jamaica Cheng MD - Last Filed: 04/24/24 10:05>
--- NOTE | 2024-04-22 18:52 | ECG_ITS ---
Test Date: 2024-04-22 21:37:12 Measurements Intervals [place] Rate: 80 P: 48 MD: 187 QRS: -21 QRSD: 133 T: 17 QT: 407 QTc: 470 Interpretive Statements SINUS RHYTHM WITH FREQUENT VENTRICULAR PREMATURE COMPLEXES BORDERLINE LEFT AXIS DEVIATION [QRS AXIS < -20] RIGHT BUNDLE BRANCH BLOCK [120+ ms QRS DURATION, UPRIGHT V1, 40+ ms S IN I/aVL/V4/V5/V6] No previous ECG available for comparison Electronically Signed On 04-23-2024 11:50:37 SSAS DEVELOPER by Jairo Palma
[2024-04-22 21:34] LABS: Basophils Percent Auto 0.3 % (0.2-1.2); Eosinophils Percent Auto 0.3 % (0-4.4); Hematocrit 47.6 % (42.0-52.0); Hemoglobin 15.9 g/dL (14.0-18.0); Immature Granulocyte Absolute 0.04 K/mm3 (0.00-0.031); Immature Granulocyte Percent A 0.4 % (0-0.5); Lymphocytes Absolute Auto 1.02 K/mm3 (0.9-3.2); Mean Corpuscular HGB Conc 33.4 g/dl (32-36); Mean Corpuscular Hemoglobin 31.1 pg (26-34); Mean Corpuscular Volume 93.2 fl (80-100); Mean Platelet Volume 10.8 fl (7.4-10.4); Monocytes Absolute Auto 0.7 K/mm3 (0.1-0.6); Monocytes Percent Auto 6.3 % (2.6-8.5); Neutrophils Absolute Auto 9.5 K/mm3 (1.3-6.7); Neutrophils Percent Auto 83.7 % (45.5-73.1); Platelet Count Result 259 k/mm3 (150-375); Red Blood Count 5.11 M/mm3 (4.6-6.20); Red Cell Distribution Width 13.2 % (11.5-14.5); White Blood Count 11.3 K/mm3 (4.5-10.0)
[2024-04-22 21:50] LABS: Partial Thromboplastin Time 41.1 Seconds (22.3-36.8)
[2024-04-22 21:51] LABS: INR 2.9; Prothrombin Time 30.3 Seconds (11.1-14.7)
[2024-04-22 21:53] LABS: Alanine Aminotransferase 15 U/L (6-50); Albumin Level 4.1 g/dL (3.5-5.1); Alkaline Phosphatase 57 U/L (38-126); Anion Gap 7 mmol/L (4-12); Aspartate Amino Transferase 28 U/L (17-59); Bilirubin,Total 1.4 mg/dL (0.2-1.3); Blood Urea Nitrogen 25 mg/dL (9-20); Calcium 9.4 mg/dL (8.4-10.2); Carbon Dioxide 25 mmol/L (22-30); Chloride 102 mmol/L (98-107); Estimated CRCL calculation 61 ml/min; Estimated Glomerular Filt Rate > 60; Glucose 138 mg/dL (65-110); Lipase 78 U/L (23-300); Potassium 4.3 mmol/L (3.4-5.0); Sodium 134 mmol/L (137-145)
[2024-04-22 22:04] LABS: Troponin I < 0.012 ng/mL (0.000-0.034)
[2024-04-22 22:50] LABS: Add Urine Microscopic? NO; Appearance Urine Clear (Clear); Bilirubin Urine Negative (Negative); Blood Urine Negative (Negative); Color Urine Yellow (Yellow); Glucose Urine UA 3+ mg/dL (Negative); Ketones Urine 1+ mg/dL (Negative); Leukocyte Esterase Ur Negative LEU/UL (Negative); Nitrate Urine Negative (Negative); Protein Urine Negative (Negative); Specific Grav Ur 1.038 (1.001-1.035)
[2024-04-23] VITALS: BP 122/83; PULSE 90; RESP 21; O2SAT 94
[2024-04-23 00:06] LABS: Influenza A QL RT-PCR Negative (Negative); Influenza B QL RT-PCR Negative (Negative); RSV RNA, RT-PCR Negative (Negative); SARS-CoV-2 RNA PCR Negative (Negative)
== END 2024-04-23 01:29 | disposition home or self-care (01) ==
PROVIDERS: Physician Assistant; Emergency Provider Student in an Organized Health Care Education/Training Program; PCP Family Medicine
DX: R25.1 Tremor, unspecified (principal); I45.10 Unspecified right bundle-branch block; R81 Glycosuria; I50.30 Unspecified diastolic (congestive) heart failure; R91.8 Other nonspecific abnormal finding of lung field; D51.9 Vitamin B12 deficiency anemia, unspecified; E11.9 Type 2 diabetes mellitus without complications; J44.9 Chronic obstructive pulmonary disease, unspecified; I10 Essential (primary) hypertension; I48.91 Unspecified atrial fibrillation; I25.10 Atherosclerotic heart disease of native coronary artery without angina pectoris; E78.2 Mixed hyperlipidemia; Z87.891 Personal history of nicotine dependence; Z20.822 Contact with and (suspected) exposure to COVID-19
CPT/HCPCS: 36415; 70450; 71046; 72125; 80053; 81003; 83690; 83735; 84484; 85025; 85610; 85730; 87637; 93005; 99284

== ENCOUNTER 2024-12-03 08:24 | Outpatient (CLI) | payer MEDICARE, SELFPAY ==
--- OUTSIDE RECORDS SUMMARY | 2024-12-03 08:28 | XMS_ITS | Continuity of Care Document ---
Author Organization [facility] Address [address] [place] [address] Phone Care Team Providers Care Passenger Interline Clerk Name Role Phone Codey Gonzalez Unavailable Unavailable Procedures Procedure Date Office/outpatient Visit, Est Dilated Retinal Exam W Interpretation Ma Office/outpatient Visit, Est Optic Nerve Head Eval Dilated Retinal Exam W Interpretation No No Script Office/outpatient Visit, Est Optic Nerve Head Eval Dilated Retinal Exam W Interpretation Fe No Script Visual Field Examination(s) Office/outpatient Visit, Est Optic Nerve Topography Optic Nerve Topography Office/outpatient Visit, Est Fundus Photography W/ Report Visual Field Examination(s) Advance Directives Directive Yes / No Effective Date File Name No Information Encounters Encounter Description Practice Location Reason(s) For Visit Diagnoses Date Provider Providers Copied on Encounter Office/outpat ient Visit, Est [facility], [address], [place], [place], [id number], [place] tel:[phone] [facility] No Information 0 Carlos Alegre. [address] , [address], [place], [address], [place]. tel:[phone] Office/outpat ient Visit, [facility], [address] [place] [address] [address], [place], [place], [id number], [place] tel:[phone] [facility] No Information 6[address] Carlos Alegre. [address] , [address], [place], [place], [facility] [place], . tel:[phone] Office/outpat ient Visit, Est [facility], [address] [place] [address] [address], [place], [place], [id number], [place] tel:[phone] [facility] No Information [address] 9 Carlos Alegre. [address] , [address], [place], [place], [facility] [place], . tel:[phone] [facility], [address] [place] [address] [address], [place], [place], [id number], tel:[phone] [facility] No Information 5[address] Carlos Alegre. [address] , [address], [place], [place], [facility] [place]. tel:[phone] Referring Provider: Code[facility] Shultz, [facility] [address], [place], [place], [facility] [facility] [place]. tel:[phone] Office/outpat ient Visit, [facility], [address] [place] [address] [address], [place], [place], [id number], [place] tel:[phone] [facility] No Information 0-200 8 Carlos Alegre. [address], [place], [place], [facility] [place]. tel:[phone] [facility], [address] [place] [address] [address], [place], [place], [id number], [place] tel:[phone] [facility] No Information 3-200 7 Carlos Alegre. [address] [facility] [address], [address], [place], [place], [facility] [place] [facility] [place]. tel:[phone] Referring Provider: Dolores Atkinson [facility] [address], [place], [place], [facility] [facility] [place]. tel:[phone] Office/outpat ient Visit, Est [facility], [address], [place], [place], [id number], tel:[phone] [facility] No Information 2[address] Carlos Alegre. Dol[address] [facility] [address], [place], [address], [place]. tel:[phone] Referring Provider: Dolores [address], [place], [place], [facility] [place]. tel:[phone] [facility], [address], [place], [place], [id number], tel:[phone] [facility] No Information [address] A[address], [address], [place], [address], [place]. tel:[phone] Referring Provider: Dolores [address], [place], [place], [facility] [place] [place]. tel:[phone] Family History Family Member Type Diagnosis Age At Onset No Information Payers Payer name Insurance type Covered libertarian ID Authorjose daniela tireyna(s) [place] [id number] Social History Type Description Quantity Date Captured Comments Sex Male Smoking Status No Information Chief Complaint And Reason For Visit No Information Reason For Referral Reason For Referral No Information History Of Present Illness Encounter Date Complaint History Of Prese nt Illness No Information Functional Status Date Functional Assessmen t No Information Instructions Date Instruction Additional Infor mation No Information Assessments Type Assessment Date No Information Patient Care Teams Name Effective Dates (start - stop) Status Members No Information
--- OUTSIDE RECORDS SUMMARY | 2024-12-03 08:28 | XMS_ITS | Clinical Summary ---
Author Organization [facility] [address] Address [address] [place] [address] Care Team Providers Care Information Officer Name Role Phone Michel Funk MD Primary Care Provider [phone] Allergies Active Allergy Reactions Criticality Noted Date Comments Iodinated Contrast Media Other (See comments),Angioedema High Reaction: Angioedema, Reaction: PRURITUS, Medications fluticasone (FLONASE) 50 mcg/actuation nasal spray inhale 2 spray by intranasal route every day in each nostril 0 spray 0 6 Active loratadine (CLARITIN) 10 mg tablet take 1 tablet by oral route every day 0 0 6 Active guaiFENesin ER (MUCINEX) 600 mg 12 hr tablet take 1 tablet by oral route every 12 hours as needed 0 0 6 Active omega 5-qxj-nvx-fish oil (FISH OIL) 100-160-1,000 mg capsule Take 1gram every morning 0 0 6 Active metFORMIN (GLUCOPHAGE) 500 mg tablet take 1 tablet by oral route 3 times every day with morning, lunch and evening meals 0 0 7 Active Additional Information Patient taking differently:500 mg4 times daily, Reported on 07/31/2024 glimepiride (AMARYL) 4 mg tabletIndicatio ns:type 2 diabetes mellitus 0 8 Active dulaglutide (TRULICITY) 1.5 mg/0.5 mL pen injector Inject under the skin Active cholecalciferol (VITAMIN D-3) 1,000 unit Take 2 tablet/capsule (2,000 Units total) by mouth daily Active Jardiance 25 mg tablet 3 Active vitamin A-vitamin C-vit E-min tablet Take by mouth EYE VITAMIN Active rivaroxaban (Xarelto) 20 mg tablet Take 1 tablet (20 mg total) by mouth daily with dinner 90 tablet 2 4 Active metoprolol XL (TOPROL-XL) 25 mg extended release tablet Take 1 tablet by mouth once daily 90 tablet 1 5 Active furosemide (LASIX) 40 mg tablet Take 1 tablet (40 mg total) by mouth daily 90 tablet 3 5 Active rosuvastatin (CRESTOR) 10 mg tablet Take 1 tablet (10 mg total) by mouth daily 30 tablet 11 5 11/04/19 26 Active Active Problems Problem Noted Date Diagnosed Date Hypotension due to drugs 07/18/2023 H/O cardiomyopathy 01/12/2023 Morbid (severe) obesity due to excess calories 0 06/13/2022 Cardiomyopathy, ischemic 06/01/2021 Medication side effects 11/23/2020 Dizziness 11/23/2020 Hypertension associated with diabetes 05/09/2019 Morbid obesity with BMI of 40.0-44.9, adult 08/2017 Postoperative atrial fibrillation 10/25/2016 Heart failure with improved ejection fraction (H FimpEF) 10/25/2016 Mixed diabetic hyperlipidemi a associated with type 2 diabetes mellitus ([facility]) 07/12/2016 Overview (08/17/2016): DM type 2 with diabetic dyslipidemia Chronic anticoagulation 07/12/2016 Overview (08/17/2016): Chronic anticoagulation Coronary artery disease invo lving [place] coronary artery of [place] heart without angina pectoris 05/04/2016 Overview (08/17/2016): Coronary artery disease involving [place] coronary artery of [place] heart without angina pectoris S/P CABG (coronary artery bypass graft) 05/04/20 16 Overview (08/17/2016): S/P CABG (coronary artery bypass graft) Encounter for postoperative care 04/27/2016 Overview (08/17/2016): Post surgical visit Resolved Problems Problem Noted Date Diagnosed Date Resolved Date At risk for amiodarone toxic ity with jail use 07/12/2016 05/20/2020 Overview (08/17/2016): At risk for amiodarone toxicity with assistant terminal manager use Encounters Date Type Department Care Team Description 11/03/2024 Telephone [facility] Cardiology [address] [place] [address] Estefanía Brantley NP from Last 3 Months Surgical History Surgery Date Site/Laterality Comments OTHER SURGICAL HISTORY CABG X 3 OTHER SURGICAL HISTORY arthritis: Foot surgery CORONARY ARTERY BYPASS GRAFT Medical History Medical History Date Comments Chronic coronary artery disease Coronary artery disease Hyperlipidemia Hyperlipidemia; Comments: AMB 04/27/2016 - Hypertension Hypertension Type 2 diabetes mellitus (HCC) D iabetes type 2; Comments: AMB 04/27/2016 - Hx Other Medical arthritis; Comm ents: AMB 04/27/2016 - Hx Other Medical right and left rotator cuff repair; Comments: AMD 05/04/2016 - Family History Medical History Relation Name Comments No Known Problems Father No Known Problems Mother Relation Name Status Comments Father Mother Social History Tobacco Use Types Packs/Day Years Used Date Smoking Tobacco: Former Cigarettes 0.3 10 Smokeless Tobacco: Never Alcohol Use Standard Drinks/Week Comments No 0 (1 standard drink = 0.6 oz pur e alcohol) Sex and Gender Information Value Date Recorded Sex Assigned at Not on file 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 Gender Identity Not on file Sexual Orientation Not on file Obstetrics History Last Filed Vital Signs Vital Sign Reading Time Taken Comments Blood Pressure 98/60 07/31/2024 2:29 PM CDT Pulse 86 07/31/2024 2:29 PM CDT Temperature - - Respiratory Rate 16 07/05/2017 8:57 AM DOLL EYE SETTER Oxygen Saturation 97% 07/31/2024 2:29 PM CDT Inhaled Oxygen Concentration - - Weight 93.9 kg (207 lb) 07/31/2024 2:29 PM CDT Height 167.6 cm (5' 6) 07/31/2024 2:29 PM CDT Body Mass Index 33.41 07/31/2024 2:29 PM CDT Plan of Treatment Health Maintenance Due Date Last Done Comments Albumin Creatinine Ratio, Urine 1943 Depression Screening 1943 Fall Risk Assessment 1943 Hemoglobin A1C 1943 eGFR 1943 Dilated Eye Exam 1943 Foot Exam 1943 DTaP/Tdap/Td Vaccine (1 - Tdap) 1954 Hepatitis B Screening 1961 Abdominal Aortic Aneurysm (A AA) Screen 2008 Well Visit 65+ 2008 Zoster Vaccine (2 of 3) 2015 04/19/2015 Lipid Panel 09/15/2023 09/14/2022, 05/16, 06/01/2021, Additional history exists Influenza Vaccine (Season Ended) 2025 02/25/2019, 02/13/2018, 03/07/2017, Additional history exists Pneumococcal vaccine 65+ Completed 03/07/2017, 02/12 Procedures Procedure Name Priority Date/Time Associated Diagnosis Comments LIPID PANEL Routine 09/14/2022 from Last 3 Months or Most Recently Relevant to Health Maintenance Results * Lipid panel (09/14/2022) SCRIBED Cholesterol, Total 109 100 - 199 EXTERNAL LAB SCRIBED HDL 43 >40 EXTERNAL LAB SCRIBED LDL 49 <100 EXTERNAL LAB SCRIBED Triglycerides 68 <150 EXTERNAL LAB Blood Historical Provider LAB BLOOD ORDERABLES Edit ed Result - Final EXTERNAL LAB from Last 3 Months or Most Recently Relevant to Health Maintenance Insurance MEDICARE MEDICARE [facility] MEDICARE SUPPLEMENT Care Teams Information Officer Relationship Specialty Start Date End Date Michel Funk MD [address] [address] PCP - General Family Medicine 11/11/19
--- OUTSIDE RECORDS SUMMARY | 2024-12-03 08:29 | XMS_ITS | Referral Summary ---
Author Organization [facility] [address] Address [address] [place] [address] Care Team Providers Care Sales Ledger Administrator Name Role Phone Michel Funk MD Primary Care Provider [phone] Encounters Date Type Department Care Team Description 11/03/2024 Telephone [facility] Cardiology [address] [place] [address] Estefanía Brantley NP from Last 3 Months Allergies Active Allergy Reactions Criticality Noted Date [...] as needed 0 0 6 Active omega 8-imk-ysy-fish oil (FISH OIL) 100-160-1,000 mg capsule Take [...] a associated with type 2 diabetes mellitus ([facility]) 07/12/2016 Overview (08/17/2016): DM type 2 with diabetic dyslipidemia Chronic anticoagulation 07/12/2016 Overview (08/17/2016): Chronic anticoagulation Coronary artery disease invo lving [place] coronary artery of [place] heart without angina pectoris 05/04/2016 Overview (08/17/2016): Coronary artery disease involving [place] coronary artery [place] heart without angina pectoris S/P CABG (coronary artery bypass graft) 05/04/20 16 Overview (08/17/2016): S/P CABG (coronary artery bypass graft) Encounter for postoperative care 04/27/2016 Overview (08/17/2016): Post surgical visit Resolved Problems Problem Noted Date Diagnosed Date Resolved Date At risk for amiodarone toxic ity with terminal carman use 07/12/2016 05/20/2020 Overview (08/17/2016): At risk for amiodarone toxicity with intermediate use Social History Tobacco Use Types Packs/Day Years Used Date Smoking Tobacco: Former Cigarettes 0.3 10 Smokeless Tobacco: Never Alcohol Use Standard Drinks/Week Comments No 0 (1 standard drink = 0.6 oz pur e alcohol) Sex and Gender Information Value Date Recorded Sex Assigned at Not on file 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 Gender Identity Not on file Sexual Orientation Not on file Last Filed Vital Signs Vital Sign Reading Time Taken Comments Blood Pressure 98/60 07/31/2024 2:29 PM CDT Pulse 86 07/31/2024 2:29 PM CDT Temperature - - Respiratory Rate 16 07/05/2017 8:57 AM COAT PRESSER Oxygen Saturation 97% 07/31/2024 2:29 PM CDT Inhaled Oxygen Concentration - - Weight 93.9 kg (207 lb) 07/31/2024 2:29 PM CDT Height 167.6 cm (5' 6) 07/31/2024 2:29 PM CDT Body Mass Index 33.41 07/31/2024 2:29 PM CDT Plan of Treatment Not on file Procedures Procedure Name Priority Date/Time Associated Diagnosis Comments LIPID PANEL Routine 09/14/2022 from Last 3 Months or Most Recently Relevant to Health Maintenance Results * Lipid panel (09/14/2022) SCRIBED Cholesterol, Total 109 100 - 199 EXTERNAL LAB SCRIBED HDL 43 >40 EXTERNAL LAB SCRIBED LDL 49 <100 EXTERNAL LAB SCRIBED Triglycerides 68 <150 EXTERNAL LAB Blood us Historical Provider LAB BLOOD ORDERABLES Edit ed Result - Final EXTERNAL LAB from Last 3 Months or Most Recently Relevant to Health Maintenance Insurance [facility] MEDICARE SUPPLEMENT Care Teams Sales Ledger Administrator Relationship Specialty Start Date End Date Michel Funk MD [address] [address] PCP - General Family Medicine 11/11/19
[2024-12-03 09:28] LABS: Add Urine Microscopic? NO; Appearance Urine Clear (Clear); Glucose Urine UA 3+ mg/dL (Negative); Leukocyte Esterase Ur Negative LEU/UL (Negative); Nitrate Urine Negative (Negative); Specific Grav Ur 1.040 (1.001-1.035)
[2024-12-03 09:30] LABS: Hematocrit 47.4 % (42.0-52.0); Hemoglobin 15.4 g/dL (14.0-18.0); Immature Granulocyte Percent A 0.5 % (0-0.5); Lymphocytes Absolute Auto 2.35 K/mm3 (0.9-3.2); Mean Corpuscular HGB Conc 32.5 g/dl (32-36); Mean Corpuscular Hemoglobin 30.4 pg (26-34); Mean Corpuscular Volume 93.5 fl (80-100); Nucleated Red Blood Cells Absolute Auto 0.000 K/mm3 (0.0-0.012); Nucleated Red Blood Cells Perc 0.0 % (0.0-0.2); Platelet Count Result 293 k/mm3 (150-375); Red Blood Count 5.07 M/mm3 (4.6-6.20); White Blood Count 9.9 K/mm3 (4.5-10.0)
[2024-12-03 09:46] LABS: MALB Creatinine Ratio 8.4 mg/g (0-30)
[2024-12-03 09:52] LABS: Alanine Aminotransferase 15 U/L (6-50); Albumin Level 4.5 g/dL (3.5-5.1); Alkaline Phosphatase 70 U/L (38-126); Anion Gap 9 mmol/L (4-12); Aspartate Amino Transferase 27 U/L (17-59); Bilirubin,Total 1.2 mg/dL (0.2-1.3); Blood Urea Nitrogen 20 mg/dL (9-20); Calcium 9.5 mg/dL (8.4-10.2); Carbon Dioxide 27 mmol/L (22-30); Chloride 99 mmol/L (98-107); Cholesterol 116 mg/dL (0-200); Estimated Glomerular Filt Rate > 60; Glucose 123 mg/dL (65-110); HDL Direct 45 mg/dL; Potassium 4.2 mmol/L (3.4-5.0); Sodium 135 mmol/L (137-145); Total Protein 8.1 g/dL (6.3-8.2); Triglycerides 71 mg/dL (<150)
[2024-12-03 10:27] LABS: Prostate Specific Antigen 4.1 ng/mL (< OR = 4.0); Thyroid Stimulating Hormone 1.150 uIU/mL (0.465-4.680)
[2024-12-03 10:46] LABS: Vitamin B12 230.0 pg/mL (239-931)
[2024-12-03 15:47] LABS: Hemoglobin A1C 6.5 % (<5.7)
== END 2024-12-03 08:25 | disposition home or self-care (01) ==
PROVIDERS: PCP Family Medicine; Visit Provider Family Medicine
DX: I48.91 Unspecified atrial fibrillation (principal); E78.2 Mixed hyperlipidemia; E11.65 Type 2 diabetes mellitus with hyperglycemia; D51.9 Vitamin B12 deficiency anemia, unspecified; Z12.5 Encounter for screening for malignant neoplasm of prostate
CPT/HCPCS: 36415; 80048; 80061; 80076; 81003; 82043; 82607; 83036; 84153; 84443; 85025; G0103